=== PATIENT | male | born 1990 | race African-American/Black ===

== ENCOUNTER 2017-05-21 12:07 | Emergency (ER) | payer SELFPAY ==
--- NOTE | 2017-05-21 12:38 | ER Document Report ---
ED Medical Screen (RME) - General Chief Complaint: Arm Pain Stated Complaint: RIGHT ARM PAIN Time Seen by Provider: 05/21/17 12:34 Notes: Patient states that he has a history of seizures. He states that they have done MRI and head CT in the past that have been normal. He states in his seizures his right side locks up. He states he is usually treated with muscle relaxers to help this. He states that he continues to have pain in his right arm intermittently. He states he also had some trouble speaking last night. He states for 30 minutes he had to write everything down and could not talk. He states that is why he came in today for evaluation of this symptom. Currently he states that he has no trouble speaking. TRAVEL OUTSIDE OF THE [place] IN LAST 30 DAYS: No - Related Data Allergies/Adverse Reactions: No Known Allergies Allergy (Verified 05/21/17 12:14) Past Medical History Neurological Medical History: Reports: Hx Seizures - Immunizations Hx Diphtheria, Pertussis, Tetanus Vaccination: Yes Physical Exam - Vital signs Vitals: Temp Pulse Resp BP Pulse Ox 98.9 F 88 16 131/88 H 98 05/21/17 12:11 05/21/17 12:11 05/21/17 12:11 05/21/17 12:11 05/21/17 12:11 Course - Vital Signs Vital signs: Temp Pulse Resp BP Pulse Ox 98.9 F 88 16 131/88 H 98 05/21/17 12:11 05/21/17 12:11 05/21/17 12:11 05/21/17 12:11 05/21/17 12:11
--- NOTE | 2017-05-21 13:12 | EKG REPORT ---
SEVERITY:- BORDERLINE ECG - SINUS RHYTHM CONSIDER RIGHT VENTRICULAR HYPERTROPHY : Confirmed by: Maximus De Oliveira MD 21-May-2017 13:11:21
[2017-05-21 13:15] LABS: ABSOLUTE BASOPHILS # (AUTO) 0.1 10^3/uL (0.0-0.2); ABSOLUTE EOSINOPHILS # (AUTO) 0.1 10^3/uL (0.0-0.6); ABSOLUTE LYMPHOCYTES (AUTO) 1.9 10^3/uL (0.5-4.7); ABSOLUTE MONOCYTES (AUTO) 0.4 10^3/uL (0.1-1.4); ABSOLUTE NEUT (AUTO) 3.8 10^3/uL (1.7-8.2); BASOPHILS % (AUTO) 1.2 % (0-2); EOSINOPHILS % (AUTO) 1.4 % (0-6); HEMATOCRIT 46.9 % (37.9-51.0); HEMOGLOBIN 15.8 g/dL (13.5-17.0); HGB HCT DIFFERENCE 0.5; LYMPHOCYTES % (AUTO) 29.7 % (13-45); MEAN CORPUSCULAR HEMOGLOBIN 28.8 pg (27.0-33.4); MEAN CORPUSCULAR HGB CONC 33.8 g/dL (32.0-36.0); MEAN CORPUSCULAR VOLUME 85 fl (80-97); MONOCYTES % (AUTO) 6.9 % (3-13); RED CELL DISTRIBUTION WIDTH 13.7 % (11.5-14.0); SEGMENTED NEUTROPHILS % (AUTO) 60.8 % (42-78); WHITE BLOOD COUNT 6.2 10^3/uL (4.0-10.5)
[2017-05-21 13:19] LABS: APPEARANCE,URINE CLEAR; BILIRUBIN,URINE NEGATIVE (NEGATIVE); GLUCOSE, URINE NEGATIVE (NEGATIVE); KETONES,URINE TRACE mg/dL (NEGATIVE); LEUKOCYTE ESTERASE,URINE NEGATIVE (NEGATIVE); NITRITE,URINE NEGATIVE (NEGATIVE); PROTEIN,URINE NEGATIVE (NEGATIVE); URINE SPECIFIC GRAVITY 1.019
--- NOTE | 2017-05-21 13:23 | RADIOLOGY REPORT (SQ) ---
EXAM DESCRIPTION: CT HEAD WITHOUT COMPLETED DATE/TIME: 05/21/2017 1:13 pm REASON FOR STUDY: trouble speaking COMPARISON: None. TECHNIQUE: Axial images acquired through the brain without intravenous contrast. Images reviewed wi th bone, brain and subdural windows. Images stored on PACS. All CT scanners at this facility use dose modulation, iterative reconstruction, and/or weight based d osing when appropriate to reduce radiation dose to as low as reasonably achievable (ALARA). [facility]: Dose Right [facility]: CareDose [facility]: Dose Right [facility]: Teradose 4D [facility]: Zinio RADIATION DOSE: CT Rad equipment meets quality standard of care and radiation dose reduction techniq ues were employed. CTDIvol: 64.6 mGy. DLP: 1163 mGy-cm. mGy. LIMITATIONS: None. FINDINGS: VENTRICLES: Normal size and contour. CEREBRUM: No masses. No hemorrhage. No midline shift. No evidence for acute infarction. Normal gra y/white matter differentiation. No areas of low density in the white matter. CEREBELLUM: No masses. No hemorrhage. No alteration of density. No evidence for acute infarction. EXTRAAXIAL SPACES: No fluid collections. No masses. ORBITS AND GLOBE: No intra- or extraconal masses. Normal contour of globe without masses. CALVARIUM: No fracture. PARANASAL SINUSES: No fluid or mucosal thickening. SOFT TISSUES: No mass or hematoma. OTHER: No other significant finding. IMPRESSION: NORMAL BRAIN CT WITHOUT CONTRAST. EVIDENCE OF ACUTE STROKE: NO. COMMENT: Quality ID # [id number]: Final reports with documentation of one or more dose reduction techniques (e.g., Automated exposure control, adjustment of the mA and/or kV according to patient size, use of iterative reconstruction technique) TECHNICAL DOCUMENTATION: JOB ID: [id number] [employer]- All Rights Reserved
[2017-05-21 13:34] LABS: ALANINE AMINOTRANSFERASE 44 U/L (21-72); ALBUMIN 4.8 g/dL (3.5-5.0); ALKALINE PHOSPHATASE 125 U/L (38-126); ANION GAP 14 (5-19); ASPARTATE AMINO TRANSFERASE 35 U/L (17-59); BILIRUBIN,DIRECT 0.4 mg/dL (0.0-0.4); BILIRUBIN,TOTAL 0.7 mg/dL (0.2-1.3); BLOOD UREA NITROGEN 18 mg/dL (7-20); CALCIUM 9.7 mg/dL (8.4-10.2); CARBON DIOXIDE 24 mmol/L (22-30); CHLORIDE 106 mmol/L (98-107); GLUCOSE 85 mg/dL (75-110); SODIUM 144.3 mmol/L (137-145); TOTAL PROTEIN 8.4 g/dL (6.3-8.2)
--- NOTE | 2017-05-21 14:26 | ER Document Report ---
ED General <EDWARD GALEAS - Last Filed: 05/21/17 14:30> - General Mode of Arrival: Ambulatory Information source: Patient TRAVEL OUTSIDE OF THE [place] IN LAST 30 DAYS: No <JENNIFER LAND - Last Filed: 05/21/17 14:38> - General Chief Complaint: Arm Pain Stated Complaint: RIGHT ARM PAIN Time Seen by Provider: 05/21/17 12:34 Notes: Patient is a 26 year old male that presents to the emergency department today with complaints of a speech impairment last night around 930 or 1000. Patient states he was cooking fish when he began not being able to speak. Patient states he was unable to talk for approximately 30 minutes. Patient states that he "had to yell to get his voice back". Patient states during that 30 minutes he had complete motor function and was able to write down what he wanted to say but he was unable to say it aloud. Patient has a history of seizures and was on Dilantin but he has not been taking his medications for quite some time. Patient has had normal head CTs at this facility in December of 2013, May of 2015, and April of 2016. Patient also mentions right shoulder pain which he states is chronic. Patient had no acute injury to his right shoulder. Patient denies having any seizure activity during speech impairment. (JENNIFER LAND) - Related Data Allergies/Adverse Reactions: No Known Allergies Allergy (Verified 05/21/17 12:14) Past Medical History - General Information source: Patient - Social History Smoking Status: Current Every Day Smoker Cigarette use (# per day): Yes Chew tobacco use (# tins/day): No Frequency of alcohol use: Heavy Drug Abuse: None Family History: Reviewed & Not Pertinent Patient has suicidal ideation: No Patient has homicidal ideation: No Neurological Medical History: Reports: Hx Seizures Surgical Hx: Negative - Immunizations Hx Diphtheria, Pertussis, Tetanus Vaccination: Yes <JENNIFER LAND - Last Filed: 05/21/17 14:38> Review of Systems - Review of Systems Constitutional: No symptoms reported EENT: No symptoms reported Cardiovascular: No symptoms reported Respiratory: No symptoms reported Gastrointestinal: No symptoms reported Genitourinary: No symptoms reported Male Genitourinary: No symptoms reported Musculoskeletal: See HPI, Joint pain - right shoulder Skin: No symptoms reported Hematologic/Lymphatic: No symptoms reported Neurological/Psychological: See HPI, Speech impairment. denies: Seizure -: Yes All other systems reviewed and negative <JENNIFER LAND - Last Filed: 05/21/17 14:38> Physical Exam <EDWARD GALEAS - Last Filed: 05/21/17 14:30> <[email or web address] - Last Filed: 05/21/17 14:38> - Vital signs Vitals: Temp Pulse Resp BP Pulse Ox 98.9 F 88 16 131/88 H 98 05/21/17 12:11 05/21/17 12:11 05/21/17 12:11 05/21/17 12:11 05/21/17 12:11 - Notes Notes: Physical Exam: General: Alert, appears well. HEENT: Normocephalic. Atraumatic. PERRL. Extraocular movements intact. Oropharynx clear. Neck: Supple. Non-tender. Respiratory: No respiratory distress. Clear and equal breath sounds bilaterally. Cardiovascular: Regular rate and rhythm. Abdominal: Normal Inspection. Non-tender. No distension. Normal Bowel Sounds. Back: Non-tender. No deformity or step off. Extremities: Moves all four extremities. Upper extremities: Tenderness with palpation over right shoulder and scapular muscles. Normal ROM. Lower extremities: Normal inspection. No edema. Normal ROM. Neurological: Cranial Nerves II-XII intact bilaterally. Normal operation agent strength bilaterally. Normal cognition. AAOx4. Normal speech. Psychological: Normal affect. Normal Mood. Skin: Warm. Dry. Normal color. (JENNIFER LAND) Course - Laboratory Result Diagrams: 05/21/17 12:55 05/21/17 12:55 - Diagnostic Test Radiology reviewed: Image reviewed, Reports reviewed - CT scan is unremarkable <EDWARD GALEAS - Last Filed: 05/21/17 14:30> - Laboratory Result Diagrams: 05/21/17 12:55 05/21/17 12:55 <JENNIFER LAND - Last Filed: 05/21/17 14:38> - Vital Signs Vital signs: Temp Pulse Resp BP Pulse Ox 98.9 F 88 16 131/88 H 98 05/21/17 12:11 05/21/17 12:11 05/21/17 12:11 05/21/17 12:11 05/21/17 12:11 - Laboratory Laboratory results interpreted by me: 05/21/17 05/21/17 05/21/17 12:55 12:55 12:55 Plt Count 125 L Total Protein 8.4 H Urine Ketones TRACE H Urine Urobilinogen 2.0 H Discharge <EDWARD GALEAS - Last Filed: 05/21/17 14:30> <JENNIFER LAND - Last Filed: 05/21/17 14:38> - Discharge Clinical Impression: Aphasia Shoulder pain, right Qualifiers: Chronicity: chronic Qualified Code(s): M25.511 - Pain in right shoulder Additional Instructions: The CT scan that was done and lab work were normal. There is no clear explanation for your brief episode of being unable to speak. You should follow-up with your primary care provider this week for a neurology referral to further evaluate this problem and to see if you need to be on anti- seizure medications. RETURN TO THE EMERGENCY ROOM IF ANY NEW OR WORSENING SYMPTOMS. Referrals: AMY TREJO, DIRECTOR OF CARDIAC REHABILITATION-C [Primary Care Provider] - Follow up in 3-5 days Scribe Attestation: 05/21/17 14:28 I personally performed the services described in the documentation, reviewed and edited the documentation which was dictated to the scribe in my presence, and it accurately records my words and actions. (EDWARD GALEAS) Scribe Documentation - Scribe Written by Vijaya:: Vijaya Hernandez, 05/21/2017 1437 acting as scribe for :: Ramy <JENNIFER LAND - Last Filed: 05/21/17 14:38>
[2017-05-21 15:24] VITALS: BP 128/74
== END 2017-05-21 15:22 | disposition home or self-care (01) ==
LOC: ER 12:07
DX: M25.511 Pain in right shoulder (principal); M79.601 Pain in right arm; F17.200 Nicotine dependence, unspecified, uncomplicated
CPT/HCPCS: 36415; 70450; 80053; 81001; 85025; 93005; 93010; 99284